=== PATIENT | male | born 1950 | race Caucasian/White ===

== ENCOUNTER 2017-02-13 21:35 | Inpatient (IN) | payer MEDICAID ==
[~2017-02-13] VITALS: Ht 167.6 cm; Wt 78.9 kg
[2017-02-13] MEDS ORDERED: MORPHINE SULFATE 4 MG/ML CPJ (NOT FOR IM USE) IV STA (22:54)
[2017-02-13] MEDS ORDERED: SODIUM CHLORIDE 0.9% 1,000 ML IV ONE (22:54)
[2017-02-13] MEDS ORDERED: FAMOTIDINE 20MG/2ML VIAL IV STA (22:54)
[2017-02-13] MEDS ORDERED: ONDANSETRON HCL 4MG/2ML VIAL IV STA (22:54)
[2017-02-14 00:05] LABS: BASOPHILS % 1.5 % (0.0-2.0); EOSINOPHILS % 3.6 % (0.0-5.0); HEMATOCRIT. 37.8 % (42.0-52.0); HEMOGLOBIN. 13.3 g/dL (14.0-18.0); LYMPHOCYTES % 23.9 % (20.0-50.0); MEAN CORPUSCULAR HEMOGLOBIN 28.7 pg (28.0-32.0); MEAN CORPUSCULAR VOLUME 81.9 fL (80.0-94.0); MEAN PLATELET VOLUME 6.9 fl (7.4-10.4); MONOCYTES % 5.1 % (2.0-8.0); NEUTROPHILS % 65.9 % (40.0-76.0); PLATELET 180 x1000/uL (130-400); RED BLOOD CELL COUNT 4.62 mill/uL (4.7-6.1); RED CELL DISTRIBUTION WIDTH 14.1 % (11.6-14.6)
[2017-02-14 00:13] LABS: CHLORIDE 109 mEq/L (98-107)
[2017-02-14 00:21] LABS: CARBON DIOXIDE 26 mEq/L (21-32)
[2017-02-14 00:27] LABS: PROTHROMBIN TIME 10.7 sec (9.4-11.6)
[2017-02-14 03:35] VITALS: BP 136/56
[2017-02-14] MEDS ORDERED: LISI10TA5 PO (03:58)
[2017-02-14] MEDS ORDERED: ASPI-1159 PO (03:59)
[2017-02-14] MEDS ORDERED: FAMO-134 PO (04:02)
[2017-02-14] MEDS ORDERED: ATOR40TA70 PO (04:02)
[2017-02-14] MEDS ORDERED: IBUP-22 PO (04:03)
[2017-02-14 04:05] VITALS: BP 136/56
[2017-02-14] MEDS ORDERED: ONDANSETRON HCL 4MG/2ML VIAL IV PRN (06:00)
[2017-02-14] MEDS: SODIUM CHLORIDE 0.9% 1,000 ML IV SCH ×2 (07:00→23:13)
[2017-02-14 08:00] VITALS: BP 128/65
[2017-02-14] MEDS: FAMOTIDINE 20MG/2ML VIAL IV SCH ×2 (09:11→21:06)
[2017-02-14 09:37] LABS: BASOPHILS % 0.9 % (0.0-2.0); EOSINOPHILS % 3.9 % (0.0-5.0); HEMATOCRIT. 36.8 % (42.0-52.0); HEMOGLOBIN. 12.9 g/dL (14.0-18.0); LYMPHOCYTES % 30.8 % (20.0-50.0); MEAN CORPUSCULAR HEMOGLOBIN 28.7 pg (28.0-32.0); MEAN PLATELET VOLUME 7.1 fl (7.4-10.4); MONOCYTES % 8.4 % (2.0-8.0); PLATELET 155 x1000/uL (130-400); RED BLOOD CELL COUNT 4.49 mill/uL (4.7-6.1)
[2017-02-14] MEDS ORDERED: INFLUENZA VIRUS VACCINE 0.5ML SYR IM ONE (10:00)
[2017-02-14 10:06] LABS: CARBON DIOXIDE 28 mEq/L (21-32); CHLORIDE 108 mEq/L (98-107); CREATINE KINASE 68 IU/L (39-308); CREATINE KINASE MB FRACTION 0.8 ng/mL (0.5-3.6); TROPONIN I < 0.02 ng/mL (0.00-0.04)
[2017-02-14] MEDS ORDERED: REGADENOSON 0.4 MG/5 ML IV ONE (11:00)
[2017-02-14 12:00] VITALS: BP 150/66
[2017-02-14 13:18] LABS: CLARITY URINE CLEAR (CLEAR); COLOR URINE YELLOW (YELLOW); GLUCOSE URINE NEGATIVE (NEGATIVE); KETONES URINE NEGATIVE (NEGATIVE); LEUKOCYTE ESTERASE URINE NEGATIVE (NEGATIVE); NITRITE URINE NEGATIVE (NEGATIVE); OCCULT BLOOD URINE NEGATIVE (NEGATIVE); PROTEIN URINE NEGATIVE (NEGATIVE); SPECIFIC GRAVITY URINE 1.014 (1.005-1.030); UROBILINOGEN URINE 0.2 E.U./dL (0.2-1.0)
[2017-02-14] MEDS ORDERED: NITROGLYCERIN 0.4MG TABLET SL SL PRN (13:45)
[2017-02-14] MEDS ORDERED: ASPIRIN 81MG TABLET PO NR (13:45)
[2017-02-14 16:16] VITALS: BP 145/80
[2017-02-14] MEDS ORDERED: BISACODYL 5MG TABLET PO NR ×2 (18:00→20:00)
[2017-02-14] MEDS ORDERED: SORBITOL 70% SOLN 30ML PO NR ×2 (18:00→20:00)
[2017-02-14 19:43] VITALS: BP 148/56
[2017-02-14] MEDS ORDERED: ATORVASTATIN CALCIUM 40MG TABLET PO SCH (21:00)
[2017-02-14] MEDS: AMLODIPINE 5MG TABLET PO SCH (21:00)
[2017-02-14] MEDS: LISINOPRIL 10MG TABLET PO SCH (21:05)
[2017-02-14] MEDS: PANTOPRAZOLE SODIUM 40 MG/VIAL IV SCH (21:06)
[2017-02-14] MEDS: MORPHINE SULFATE 4 MG/ML CPJ (NOT FOR IM USE) IV PRN (23:10)
[2017-02-15] VITALS: BP 142/65
[2017-02-15 04:00] VITALS: BP 141/68
[2017-02-15 07:52] VITALS: BP 120/56
[2017-02-15 08:19] LABS: HEMATOCRIT. 39.5 % (42.0-52.0); HEMOGLOBIN. 13.9 g/dL (14.0-18.0); MEAN CORPUSCULAR HEMOGLOBIN 28.5 pg (28.0-32.0); MEAN CORPUSCULAR VOLUME 80.7 fL (80.0-94.0); MEAN PLATELET VOLUME 6.9 fl (7.4-10.4); PLATELET 168 x1000/uL (130-400); RED BLOOD CELL COUNT 4.89 mill/uL (4.7-6.1); RED CELL DISTRIBUTION WIDTH 14.2 % (11.6-14.6)
[2017-02-15 08:36] LABS: INR 1.1; PARTIAL THROMBOPLASTIN TIME 29.1 sec (23.4-31.0)
[2017-02-15] MEDS: SODIUM CHLORIDE 0.9% 1,000 ML IV SCH ×2 (08:40→22:00)
[2017-02-15] MEDS: FAMOTIDINE 20MG/2ML VIAL IV SCH (09:00)
[2017-02-15] MEDS: PANTOPRAZOLE SODIUM 40 MG/VIAL IV SCH (09:00)
[2017-02-15] MEDS ORDERED: PANTOPRAZOLE 40MG DR TABLET PO SCH (09:45)
[2017-02-15] MEDS: LISINOPRIL 10MG TABLET PO SCH ×2 (09:49→22:41)
[2017-02-15] MEDS: FAMOTIDINE 20MG TABLET PO SCH ×2 (10:32→22:41)
[2017-02-15] MEDS: PANTOPRAZOLE 40MG DR TABLET PO SCH ×2 (10:33→22:41)
[2017-02-15 12:00] VITALS: BP 153/49
[2017-02-15 16:01] VITALS: BP 136/61
[2017-02-15 16:45] LABS: PLATELET ESTIMATE NORMAL
[2017-02-15 20:16] VITALS: BP 127/67
[2017-02-15] MEDS: AMLODIPINE 5MG TABLET PO SCH ×2 (21:00→22:41)
[2017-02-16 00:59] VITALS: BP 120/53
[2017-02-16 04:58] VITALS: BP 109/55
[2017-02-16 06:54] LABS: HEMATOCRIT. 42.1 % (42.0-52.0); HEMOGLOBIN. 14.8 g/dL (14.0-18.0); MEAN CORPUSCULAR HEMOGLOBIN 28.5 pg (28.0-32.0); MEAN CORPUSCULAR VOLUME 80.9 fL (80.0-94.0); MEAN PLATELET VOLUME 7.1 fl (7.4-10.4); PLATELET 191 x1000/uL (130-400); RED CELL DISTRIBUTION WIDTH 14.4 % (11.6-14.6)
[2017-02-16] MEDS: FAMOTIDINE 20MG TABLET PO SCH ×2 (08:00→22:24)
[2017-02-16] MEDS: LISINOPRIL 10MG TABLET PO SCH ×2 (08:01→22:25)
[2017-02-16] MEDS: PANTOPRAZOLE 40MG DR TABLET PO SCH ×2 (08:01→22:26)
[2017-02-16] MEDS: AMLODIPINE 5MG TABLET PO SCH ×2 (08:01→21:00)
[2017-02-16] MEDS: SODIUM CHLORIDE 0.9% 1,000 ML IV SCH (10:21)
[2017-02-16] MEDS: MORPHINE SULFATE 4 MG/ML CPJ (NOT FOR IM USE) IV PRN (10:21)
[2017-02-16 10:39] LABS: PLATELET ESTIMATE NORMAL
[2017-02-16 12:00] VITALS: BP 136/77
[2017-02-16 16:00] VITALS: BP 140/70
[2017-02-16 20:00] VITALS: BP 142/80
[2017-02-16] MEDS ORDERED: ATORVASTATIN CALCIUM 40MG TABLET PO SCH (21:00)
[2017-02-17] VITALS: BP 117/62
[2017-02-17] MEDS: SODIUM CHLORIDE 0.9% 1,000 ML IV SCH (01:15)
[2017-02-17 04:00] VITALS: BP 115/59
[2017-02-17 08:00] VITALS: BP 153/72
[2017-02-17] MEDS: AMLODIPINE 5MG TABLET PO SCH ×2 (09:00→09:52)
[2017-02-17] MEDS: FAMOTIDINE 20MG TABLET PO SCH (09:52)
[2017-02-17] MEDS: PANTOPRAZOLE 40MG DR TABLET PO SCH (09:52)
[2017-02-17] MEDS: LISINOPRIL 10MG TABLET PO SCH (09:52)
[2017-02-17 11:56] VITALS: BP 161/76
[2017-02-17] MEDS ORDERED: AMLODIPINE 5MG TABLET PO NR (12:10)
[2017-02-17] MEDS ORDERED: ACETAMINOPHEN 325MG TABLET PO PRN (12:15)
[2017-02-17 12:50] VITALS: BP 161/76
== END 2017-02-17 13:58 | disposition home or self-care (01) | DRG 253 ==
LOC: ER 22:03 → 5WST 02-14 00:55 → EDBEDREQ 02-14 01:04 → EDBEDREQTM 02-14 01:04 → ENRESERV 02-14 02:05 → 8WST 02-15 11:55
PROVIDERS: ADMIT Internal Medicine; ATTEND Internal Medicine
DX: K92.2 Gastrointestinal hemorrhage, unspecified (principal); E87.8 Other disorders of electrolyte and fluid balance, not elsewhere classified; K76.0 Fatty (change of) liver, not elsewhere classified; R04.2 Hemoptysis; I10 Essential (primary) hypertension; E78.5 Hyperlipidemia, unspecified; K92.1 Melena; R07.89 Other chest pain; Z53.29 Procedure and treatment not carried out because of patient's decision for other reasons; K21.9 Gastro-esophageal reflux disease without esophagitis; K80.20 Calculus of gallbladder without cholecystitis without obstruction; N26.1 Atrophy of kidney (terminal); Z59.0 Homelessness; Z76.5 Malingerer [conscious simulation]; Z79.82 Long term (current) use of aspirin; Z82.49 Family history of ischemic heart disease and other diseases of the circulatory system; Z87.11 Personal history of peptic ulcer disease; D62 Acute posthemorrhagic anemia; E83.51 Hypocalcemia
CPT/HCPCS: 36415; 76705; 80048; 80053; 80061; 81003; 82270; 82550; 82553; 83036; 83605; 83690; 83735; 84153; 84484; 85025; 85610; 85730; 86850; 86870; 86900; 90686; 93005; 93306; 96361; 96374; 96375; 97116; 97161; 99285; C9113; J2270; J2405; J3490; J7030

== ENCOUNTER 2019-04-20 19:58 | Emergency (ER) | payer MEDICAID ==
[~2019-04-20] VITALS: Ht 175.3 cm; Wt 73.0 kg
[~2019-04-20 19:58] MED LIST: ASPI-1393 PO; ATOR40TA70 PO; FAMO-134 PO; IBUP-22 PO; LISI10TA5 PO
[2019-04-20] MEDS ORDERED: ASPIRIN 81MG TABLET PO ONE (21:15)
[2019-04-20] MEDS ORDERED: MAGNESIUM/ALUMINUM HYDROXIDE/SIMETHICONE 30ML UDC PO ONE (21:15)
[2019-04-20] MEDS ORDERED: VISCOUS LIDOCAINE 2% 15 ML UDC PO ONE (21:15)
[2019-04-20 21:47] LABS: BASOPHILS % 0.9 % (0.0-2.0); EOSINOPHILS % 1.3 % (0.0-5.0); HEMATOCRIT. 43.9 % (42.0-52.0); HEMOGLOBIN. 15.5 g/dL (14.0-18.0); LYMPHOCYTES % 20.3 % (20.0-50.0); MEAN CORPUSCULAR HEMOGLOBIN 28.9 pg (28.0-32.0); MEAN CORPUSCULAR VOLUME 81.8 fL (80.0-94.0); MONOCYTES % 5.4 % (2.0-8.0); NEUTROPHILS % 72.1 % (40.0-76.0); PLATELET 178 x1000/uL (130-400); RED BLOOD CELL COUNT 5.37 mill/uL (4.7-6.1); RED CELL DISTRIBUTION WIDTH 14.5 % (11.6-14.6)
[2019-04-20 21:52] LABS: CHLORIDE 113 mEq/L (98-107)
[2019-04-21 00:52] VITALS: BP 148/70
[2019-04-22] MEDS ORDERED: FAMO-134 PO (09:57)
[2019-04-22] MEDS ORDERED: ASPI-1393 PO (09:57)
[2019-04-22] MEDS ORDERED: LISI40TA4 MT (09:57)
[2019-04-22] MEDS ORDERED: ATOR40TA70 PO (09:57)
[2019-04-22] MEDS ORDERED: METO25TA6 MT (09:57)
== END 2019-04-21 01:09 | disposition home or self-care (01) ==
LOC: ER 19:58 → EDBD 19:58 → ER 04-21 01:09
DX: R07.89 Other chest pain (principal); I10 Essential (primary) hypertension; I20.9 Angina pectoris, unspecified; Z79.82 Long term (current) use of aspirin; Z79.899 Other long term (current) drug therapy
CPT/HCPCS: 36415; 71045; 83880; 84484; 93005; 99284